=== PATIENT | female | born 1935 | race American Indian/Alaskan Native ===

== ENCOUNTER 2017-06-21 21:11 | Inpatient (IN) | payer MEDICARE ==
[2017-06-21 21:12] VITALS: BMI 29.2
--- NOTE | 2017-06-21 21:46 | C.PDOC ---
History Of Present Illness 81 year old female with PMHx of bladder tumor presents to the ED c/o sudden episode of lower chest wall and upper back pain. Patient described her back pain as severe and worsens with movement. Patient denies dysuria, hematuria, abdominal pain, nausea, vomit, diarrhea, SOB. Chief Complaint (Nursing): Back Pain History Per: Patient History/Exam Limitations: no limitations Onset/Duration Of Symptoms: Hrs Current Symptoms Are (Timing): Still Present Quality Of Discomfort: "Pain" Previous Symptoms: Back Pain Associated Symptoms: None Exacerbating Factor(s): Movement Recent travel outside of the [place]: No Additional History Per: Patient Past Medical History Reviewed: Historical Data, Nursing Documentation, Vital Signs Vital Signs: Last Vital Signs Temp 98.5 F 06/21/17 21:19 Pulse 88 06/21/17 22:37 Resp 20 06/21/17 22:37 BP 174/79 H 06/21/17 22:37 Pulse Ox 99 06/21/17 23:02 - Medical History PMH: Anemia, Arthritis, Cardia Arrhythmia, Diabetes, HTN, Hypercholesterolemia ( s/p 4-5 cardiac stents), Malignancy (Bladder), Peripheral Edema Denies: CHF Surgical History: Coronary Stent (4-5 stents), Endoscopy, Pacemaker - [facility] Procedures CYSTOSCOPY NEC (05/23/14) INITIAL INSERT OF SING CHAMB DEV, RATE RESPONSIVE (08/21/13) INITIAL INSERT OF TRANS. LEADS INTO VENTRICLE (08/21/13) TRANSURETH BLADD BIOPSY (07/28/13) TU BLADDER CLEARANCE (10/27/12) TU DESTRUC BLADD LES NEC (07/28/13) Family History: States: Unknown Family Hx - Social History Hx Tobacco Use: No Hx Alcohol Use: No Hx Substance Use: No - Immunization History Hx Tetanus Toxoid Vaccination: No Hx Influenza Vaccination: Yes Hx Pneumococcal Vaccination: No Review Of Systems Constitutional: Negative for: Fever, Chills Cardiovascular: Positive for: Chest Pain. Negative for: Palpitations Gastrointestinal: Negative for: Nausea, Vomiting, Abdominal Pain Musculoskeletal: Positive for: Back Pain Skin: Negative for: Rash Neurological: Negative for: Weakness, Numbness Physical Exam - Physical Exam Appears: Non-toxic, In Acute Distress (Secondary to pain) Skin: Normal Color, Warm, Dry Head: Atraumatic, Normacephalic Eye(s): bilateral: Normal Inspection Nose: No Discharge Oral Mucosa: Moist Neck: Normal ROM, Supple Chest: Symmetrical Cardiovascular: Rhythm Regular, No Murmur Respiratory: Normal Breath Sounds, No Rales, No Rhonchi, No Wheezing Back: Paraspinal Tenderness (lower thoracic) Extremity: Normal ROM, No Tenderness, No Swelling Neurological/Psych: Oriented x3 Gait: Steady ED Course And Treatment - Laboratory Results Result Diagrams: 06/21/17 21:55 06/21/17 21:55 ECG: Interpreted By Me, Viewed By Me ECG Rhythm: Sinus Rhythm, R BBB ECG Interpretation: Abnormal Interpretation Of ECG: NSR, CRBBB, St-t abnormality. Rate From EC O2 Sat by Pulse Oximetry: 99 (On RA) Pulse Ox Interpretation: Normal - CT Scan/US CT thoracic spine Other Rad Studies (CT/US): Read By Radiologist, Radiology Report Reviewed CT/US Interpretation: FINDINGS: Vertebrae: Spondylotic changes thoracic spine. No acute fracture. Discs/spinal canal/neural foramina: No acute findings. No spinal canal stenosis. Soft tissues: Unremarkable. Vasculature: Calcified tortuous thoracic aorta. Lungs: Atelectasis posterior left lung. IMPRESSION: No acute findings. Spondylotic changes thoracic spine. Thank you for allowing us to participate in the care of your patient. Dictated and Authenticated by: Obie Tolentino MD. 06/21/2017 10:59 PM Eastern Time ([place] & [place]) CT lumbar spine Other Rad Studies (CT/US): Read By Radiologist, Radiology Report Reviewed CT/US Interpretation: FINDINGS: Vertebrae: Schmorl's nodes in endplates of the lumbar spine. Degenerative facet arthropathy mid and lower lumbar spine. Grade 1 anterolisthesis of L4 on L5 appears to be on a degenerative basis. No acute fracture. Discs/spinal canal/neural foramina: Moderate bilateral neural foraminal stenosis at L5-S1 due to. degenerative disc bulges and bony hypertrophy. Degenerative disc disease throughout the lumbar spine. Soft tissues: Unremarkable. Vasculature: Atherosclerotic disease. IMPRESSION: 1. Degenerative changes as described. No acute findings. 2. Moderate bilateral neural foraminal stenosis at L5-S1 due to degenerative disc bulges and bony. hypertrophy. Thank you for allowing us to participate in the care of your patient. Dictated and Authenticated by: Obie Tolentino MD. 06/21/2017 10:56 PM Eastern Time ([place] & [place]) CT chest Other Rad Studies (CT/US): Read By Radiologist, Radiology Report Reviewed CT/US Interpretation: FINDINGS: Lungs: Atelectasis in the left lung base. Pleural space: Unremarkable. No pneumothorax. No significant effusion. Heart: Unremarkable. No cardiomegaly. No significant pericardial effusion. Bones/ joints: Unremarkable. No acute fracture. No dislocation. Soft tissues: Unremarkable. Vasculature: Atherosclerotic disease. No thoracic aortic aneurysm. Lymph nodes: Unremarkable. No enlarged lymph nodes. Tubes, lines and devices: Pacemaker. IMPRESSION: No acute findings. Thank you for allowing us to participate in the care of your patient. Dictated and Authenticated by: Obie Tolentino MD. 06/21/2017 11:00 PM Eastern Time ([place] & [place]) Medical Decision Making Medical Decision Making: Impression: lower back pain Plan: * CT chest * CT lumbar spine * CT thoracic spine * EKG * Labs * Toradol 30 mg IVP * UA Disposition Discussed With Dr.: Eugene Mcdermott Doctor Will See Patient In The: Hospital Counseled Patient/Family Regarding: Diagnosis - Disposition Disposition: HOSPITALIZED Disposition Time: 01:14 Condition: STABLE Forms: [employer] ([place]) - POA Present On Arrival: None - Clinical Impression Clinical Impression: Severe back pain, UTI (urinary tract infection) - Scribe Statement The provider has reviewed the documentation as recorded by the Scribe [place] Emery All medical record entries made by the Scribe were at my direction and personally dictated by me. I have reviewed the chart and agree that the record accurately reflects my personal performance of the history, physical exam, medical decision making, and the department course for this patient. I have also personally directed, reviewed, and agree with the discharge instructions and disposition.
--- NOTE | 2017-06-21 21:47 | C.PDOC ---
Chief Complaint (Nursing): Back Pain Past Medical History Vital Signs: Last Vital Signs Temp 98.5 F 06/21/17 21:19 Pulse 89 06/21/17 21:19 Resp 20 06/21/17 21:19 BP 144/88 06/21/17 21:19 Pulse Ox 99 06/21/17 21:19 - Medical History PMH: Anemia, Arthritis, Cardia Arrhythmia, Diabetes, HTN, Hypercholesterolemia ( s/p 4-5 cardiac stents), Malignancy (Bladder), Peripheral Edema Denies: CHF Surgical History: Coronary Stent (4-5 stents), Endoscopy, Pacemaker - [facility] Procedures CYSTOSCOPY NEC (05/23/14) INITIAL INSERT OF SING CHAMB DEV, RATE RESPONSIVE (08/21/13) INITIAL INSERT OF TRANS. LEADS INTO VENTRICLE (08/21/13) TRANSURETH BLADD BIOPSY (07/28/13) TU BLADDER CLEARANCE (10/27/12) TU DESTRUC BLADD LES NEC (07/28/13) Family History: States: Unknown Family Hx - Social History Hx Tobacco Use: No Hx Alcohol Use: No Hx Substance Use: No - Immunization History Hx Tetanus Toxoid Vaccination: No Hx Influenza Vaccination: Yes Hx Pneumococcal Vaccination: No ED Course And Treatment O2 Sat by Pulse Oximetry: 99 Disposition - Disposition
[2017-06-21 22:02] LABS: BASO % 0.7 % (0.0-2.0); EOS # 0.1 K/uL (0.0-0.7); EOS % 1.9 % (0.0-4.0); HEMOGLOBIN 13.6 g/dL (11.0-16.0); LYMPH # 1.4 K/uL (1.0-4.3); LYMPH % 25.7 % (20.0-40.0); MEAN CORPUSCULAR HGB CONC 33.7 g/dL (33.0-37.0); MEAN PLATELET VOLUME 9.3 fL (7.2-11.7); MONO # 0.6 K/uL (0.0-0.8); MONO % 10.4 % (0.0-10.0); NEUT # 3.3 K/uL (1.8-7.0); NEUT % 61.3 % (50.0-75.0); NRBC % 0.1 % (0.0-2.0); RBC 4.55 Mil/uL (3.80-5.20); RED CELL DISTRIBUTION WIDTH 14.9 % (11.5-14.5); WHITE BLOOD COUNT 5.4 K/uL (4.8-10.8)
[2017-06-21 22:15] LABS: ALB/GLOB RATIO 0.9 (1.0-2.1); ALBUMIN 4.3 g/dL (3.5-5.0); ALT/SGPT 16 U/L (9-52); AST/SGOT 23 U/L (14-36); BLOOD UREA NITROGEN 20 mg/dL (7-17); CALCIUM 9.5 mg/dl (8.6-10.4); GFR AFRICAN-AMERICAN > 60; GFR NON-AFRICAN AMERICAN 53
[2017-06-21 22:20] LABS: SQUAMOUS EPITHIAL 1 /hpf (0-5); URINE BILIRUBIN NEGATIVE (NEGATIVE); URINE BLOOD 2+ (NEGATIVE); URINE CLARITY Clear (Clear); URINE COLOR Yellow (YELLOW); URINE GLUCOSE (UA) NORMAL (Normal); URINE LEUKOCYTE ESTERASE TRACE Leu/uL (Negative); URINE PROTEIN 2+ mg/dL (NEGATIVE); URINE UROBILINOGEN NORMAL mg/dL (0.2-1.0)
[2017-06-21 22:29] LABS: INR 1.1; PROTHROMBIN TIME 12.1 SECONDS (9.7-12.2)
[2017-06-21] MEDS ORDERED: Morphine 4 MG/ML VIAL IV ONE (22:38)
[2017-06-21] MEDS ORDERED: Morphine 4 MG/ML VIAL ONE (22:44)
[2017-06-21] MEDS ORDERED: Ciprofloxacin 400mg/200ml D5W 400 MG/200 ML BAG IVPB STA (23:07)
[2017-06-21] MEDS ORDERED: Ciprofloxacin 400mg/200ml D5W 400 MG/200 ML BAG IVPB ONE (23:15)
[2017-06-22] MEDS ORDERED: Morphine 4 MG/ML VIAL ONE (01:04)
--- NOTE | 2017-06-22 01:41 | CP.PCM.HP ---
<Natalie Paredes - Last Filed: 06/22/17 03:15> History of Present Illness - History of Present Illness History of Present Illness: CC: "back pain" HPI: 81 year old female with past medical history of bladder cancer (diagnosed 2007), DM type II, CAD, HTN presents to the ER for back pain. Patient states the pain started Wednesday around noon while she was at rest. Patient denies trauma or falls. The pain started on the right side and now it is currently on the left. She states the pain comes and goes and it does not radiate anywhere. She describes the pain as a quick pain. She states she not currently in pain. She uses a cane to walk. She denies hematuria, dysuria, nausea, vomiting, fever, diarrhea or constipation. PMD: Dr. Lincoln Urologist: Dr. Reyes Past Medical History: bladder cancer (diagnosed 2007), DM type II, CAD, HTN; Glaucoma; Decreased bilateral vision for 4 years Past Surgical History: cystoscopy (03/07) for cyst removal with Dr. Reyes; pacemaker placed 4 years ago (last interrogated was last week); Cataract surgery ; tubal ligation bilateral eyes Medications: Meloxicam 15mg daily; Hydralazine 50mg tid; Atorvastatin 10mg hs; famotidine 20mg hs; aspirin 81mg daily; Nifedipine ER 90mg daily; Glipidizde ER 5mg daily; Isosorbide DN 30mg BID; Metoprolol Succinate ER 50mg daily; Dorzolamide Timolol 1 drop OU bid Allergies: NKDA Family History: non-contributory Social History: Quit smoking 20 years ago; previously smoked for 20 years about Present on Admission - Present on Admission Any Indicators Present on Admission: No Review of Systems - Constitutional Constitutional: absent: Chills, Fever - EENT Eyes: As Per HPI Ears: absent: Dizziness - Cardiovascular Cardiovascular: absent: Chest Pain, Dyspnea, Edema, Palpitations - Respiratory Respiratory: absent: Cough, Dyspnea - Gastrointestinal Gastrointestinal: absent: Constipation, Diarrhea, Nausea, Vomiting - Genitourinary Genitourinary: absent: Change in Urinary Stream, Difficulty Urinating, Dysuria, Hematuria, Urinary Incontinence - Musculoskeletal Musculoskeletal: Back Pain. 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) Hx Glaucoma: Yes Hx Macular Degeneration: Yes - ENDOCRINE/METABOLIC Hx Endocrine Disorders: Yes Hx Diabetes Mellitus Type 1: Yes - HEMATOLOGICAL/ONCOLOGICAL Hx Anemia: Yes - INTEGUMENTARY Hx Dermatological Problems: No - MUSCULOSKELETAL/RHEUMATOLOGICAL Hx Arthritis: Yes - GASTROINTESTINAL Hx Gastrointestinal Disorders: No - GENITOURINARY/GYNECOLOGICAL Hx Genitourinary Disorders: Yes Hx Bladder Cancer: Yes Hx Hematuria: Yes - PSYCHIATRIC Hx Substance Use: No - SURGICAL HISTORY Hx Coronary Stent: Yes (4-5 stents) - ANESTHESIA Hx Anesthesia: Yes Hx Anesthesia Reactions: No (NAUSEA AND VOMITING) Hx Malignant Hyperthermia: No Meds Allergies/Adverse Reactions: Allergies Allergy/AdvReac Type Severity Reaction Status Date / Time No Known Allergies Allergy Verified 06/21/17 21:23 Physical Exam - Constitutional Appears: Well, No Acute Distress - Head Exam Head Exam: ATRAUMATIC, NORMAL INSPECTION - Eye Exam Eye Exam: EOMI, Normal appearance, PERRL Pupil Exam: NORMAL ACCOMODATION - ENT Exam ENT Exam: Mucous Membranes Moist - Respiratory Exam Respiratory Exam: Clear to Auscultation Bilateral, NORMAL BREATHING PATTERN. absent: Rales, Rhonchi, Wheezes, Stridor - Cardiovascular Exam Cardiovascular Exam: REGULAR RHYTHM, RRR, +S1, +S2 - GI/Abdominal Exam GI & Abdominal Exam: Normal Bowel Sounds, Soft. absent: Tenderness - Extremities Exam Extremities exam: Positive for: normal inspection. Negative for: pedal edema, tenderness - Back Exam Back exam: tenderness (spinal tenderness T10 ) - Neurological Exam Neurological exam: Alert, Oriented x3 - Psychiatric Exam Psychiatric exam: Normal Affect, Normal Mood Results - Vital Signs Recent Vital Signs: Last Vital Signs Temp 98.5 F 06/21/17 21:19 Pulse 88 06/22/17 01:24 Resp 20 06/22/17 01:24 BP 183/86 H 06/22/17 01:24 Pulse Ox 99 06/22/17 01:24 - Labs Result Diagrams: 06/21/17 21:55 06/21/17 21:55 Labs: Laboratory Results - last 24 hr 06/21/17 06/21/17 06/21/17 21:55 21:55 22:06 WBC 5.4 RBC 4.55 Hgb 13.6 Hct 40.5 MCV 89.0 MCH 30.0 MCHC 33.7 RDW 14.9 H Plt Count 226 MPV 9.3 Neut % (Auto) 61.3 Lymph % (Auto) 25.7 [place] % (Auto) 10.4 H Eos % (Auto) 1.9 Baso % (Auto) 0.7 Neut # (Auto) 3.3 Lymph # (Auto) 1.4 [place] # (Auto) 0.6 Eos # (Auto) 0.1 Baso # (Auto) 0.0 PT INR APTT Sodium 146 Potassium 3.8 Chloride 105 Carbon Dioxide 20 L Anion Gap 25 H BUN 20 H Creatinine 1.0 Est GFR ( Amer) > 60 Est GFR (Non-Af Amer) 53 Random Glucose 133 H Calcium 9.5 Total Bilirubin 0.7 AST 23 ALT 16 Alkaline Phosphatase 84 Troponin I 0.0190 Total Protein 8.9 H Albumin 4.3 Globulin 4.6 H Albumin/Globulin Ratio 0.9 L Urine Color Yellow Urine Clarity Clear Urine pH 7.0 Ur Specific [place] 1.012 Urine Protein 2+ H Urine Glucose (UA) Normal Urine Ketones Negative Urine Blood 2+ H Urine Nitrate Negative Urine Bilirubin Negative Urine Urobilinogen Normal Ur Leukocyte Esterase Trace Urine WBC (Auto) 15 H Urine RBC (Auto) 42 H Ur Squamous Epith Cells 1 06/21/17 22:16 WBC RBC Hgb Hct MCV MCH MCHC RDW Plt Count MPV Neut % (Auto) Lymph % (Auto) [place] % (Auto) Eos % (Auto) Baso % (Auto) Neut # (Auto) Lymph # (Auto) [place] # (Auto) Eos # (Auto) Baso # (Auto) PT 12.1 INR 1.1 APTT 37 H Sodium Potassium Chloride Carbon Dioxide Anion Gap BUN Creatinine Est GFR ( Amer) Est GFR (Non-Af Amer) Random Glucose Calcium Total Bilirubin AST ALT Alkaline Phosphatase Troponin I Total Protein Albumin Globulin Albumin/Globulin Ratio Urine Color Urine Clarity Urine pH Ur Specific [place] Urine Protein Urine Glucose (UA) Urine Ketones Urine Blood Urine Nitrate Urine Bilirubin Urine Urobilinogen Ur Leukocyte Esterase Urine WBC (Auto) Urine RBC (Auto) Ur Squamous Epith Cells Assessment & Plan - Assessment and Plan (Free Text) Assessment: 1.) T10 Spinal Back Pain - CT Thoracic spine: No acute findings. Spondylotic changes thoracic spine. - CT Lumbar spine: Degenerative changes as described. No acute findings. Moderate bilateral neural foraminal stenosis at L5-S1 due to degenerative disc bulges and bony. hypertrophy. - CT chest: No acute findings. - Toradol 30mg IV q6 prn - moderate pain - Tylenol 650mg po q6 prn - mild pain - Physical Therapy Eval and Treat 2.) Elevated Anion Gap - Anion gap 21 - unknown source - f/u AM labs 3.) Positive UA - patient is asymptomatic - patient was given Cipro 400mg in the ER - f/u repeat UA - f/u urine culture 4.) History of bladder cancer - Patient normally urinates often and patient has chronic decreased vision - orourke placed overnight 5.) History of DM - Accuchecks - ISS - Hypoglycemia protocol 6.) History of HTN - Continue Home medications: * Hydralazine 50mg tid; * Nifedipine ER 90mg daily; * Isosorbide DN 30mg BID; * Metoprolol Succinate ER 50mg daily 7.) History of CAD - Continue home medications: * Atorvastatin 10mg hs * aspirin 81mg daily; 8.) History of Glaucoma - Continue home medications * Dorzolamide/Timolol one drop OU bid 9.) History of decrease vision - Nursing communication placed 10.) Prophylaxis - Pepcid 40mg daily - Heparin SC - SCDs - Physical Therapy Case discussed with Dr. Sharron Paredes PGY-1 <Eugene Mcdermott P - Last Filed: 06/22/17 07:02> Results - Vital Signs Recent Vital Signs: Last Vital Signs Temp 98.2 F 06/22/17 03:25 Pulse 83 06/22/17 06:39 Resp 20 06/22/17 03:25 BP 177/86 H 06/22/17 06:39 Pulse Ox 95 06/22/17 03:25 - Labs Result Diagrams: 06/21/17 21:55 06/21/17 21:55 Labs: Laboratory Results - last 24 hr 06/21/17 06/21/17 06/21/17 21:55 21:55 22:06 WBC 5.4 RBC 4.55 Hgb 13.6 Hct 40.5 MCV 89.0 MCH 30.0 MCHC 33.7 RDW 14.9 H Plt Count 226 MPV 9.3 Neut % (Auto) 61.3 Lymph % (Auto) 25.7 [place] % (Auto) 10.4 H Eos % (Auto) 1.9 Baso % (Auto) 0.7 Neut # (Auto) 3.3 Lymph # (Auto) 1.4 [place] # (Auto) 0.6 Eos # (Auto) 0.1 Baso # (Auto) 0.0 PT INR APTT Sodium 146 Potassium 3.8 Chloride 105 Carbon Dioxide 20 L Anion Gap 25 H BUN 20 H Creatinine 1.0 Est GFR ( Amer) > 60 Est GFR (Non-Af Amer) 53 POC Glucose (mg/dL) Random Glucose 133 H Calcium 9.5 Total Bilirubin 0.7 AST 23 ALT 16 Alkaline Phosphatase 84 Troponin I 0.0190 Total Protein 8.9 H Albumin 4.3 Globulin 4.6 H Albumin/Globulin Ratio 0.9 L Urine Color Yellow Urine Clarity Clear Urine pH 7.0 Ur Specific [place] 1.012 Urine Protein 2+ H Urine Glucose (UA) Normal Urine Ketones Negative Urine Blood 2+ H Urine Nitrate Negative Urine Bilirubin Negative Urine Urobilinogen Normal Ur Leukocyte Esterase Trace Urine WBC (Auto) 15 H Urine RBC (Auto) 42 H Ur Squamous Epith Cells 1 06/21/17 06/22/17 06/22/17 22:16 02:45 06:11 WBC RBC Hgb Hct MCV MCH MCHC RDW Plt Count MPV Neut % (Auto) Lymph % (Auto) [place] % (Auto) Eos % (Auto) Baso % (Auto) Neut # (Auto) Lymph # (Auto) [place] # (Auto) Eos # (Auto) Baso # (Auto) PT 12.1 INR 1.1 APTT 37 H Sodium Potassium Chloride Carbon Dioxide Anion Gap BUN Creatinine Est GFR ( Amer) Est GFR (Non-Af Amer) POC Glucose (mg/dL) 136 H Random Glucose Calcium Total Bilirubin AST ALT Alkaline Phosphatase Troponin I Total Protein Albumin Globulin Albumin/Globulin Ratio Urine Color Yellow Urine Clarity Clear Urine pH 7.0 Ur Specific [place] 1.008 Urine Protein 2+ H Urine Glucose (UA) Normal Urine Ketones Negative Urine Blood 1+ H Urine Nitrate Negative Urine Bilirubin Negative Urine Urobilinogen Normal Ur Leukocyte Esterase Neg Urine WBC (Auto) 1 Urine RBC (Auto) 10 H Ur Squamous Epith Cells Attending/Attestation - Attestation I have personally seen and examined this patient.: Yes I have fully participated in the care of the patient.: Yes I have reviewed all pertinent clinical information: Yes Notes (Text): Assessment * Sudden back pain and resulting ambulatory dysfunction, 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
[2017-06-22] MEDS ORDERED: Glucagon Recombinant 1 mg Inj IM PRN (01:51)
[2017-06-22] MEDS ORDERED: Dextrose 50% SYRINGE Inj (50 ml) IV PRN (01:51)
[2017-06-22 03:12] LABS: URINE BILIRUBIN NEGATIVE (NEGATIVE); URINE BLOOD 1+ (NEGATIVE); URINE CLARITY Clear (Clear); URINE COLOR Yellow (YELLOW); URINE GLUCOSE (UA) NORMAL (Normal); URINE LEUKOCYTE ESTERASE NEG Leu/uL (Negative); URINE PROTEIN 2+ mg/dL (NEGATIVE); URINE UROBILINOGEN NORMAL mg/dL (0.2-1.0)
[2017-06-22 07:34] LABS: BASO % 0.6 % (0.0-2.0); EOS # 0.1 K/uL (0.0-0.7); EOS % 2.7 % (0.0-4.0); HEMOGLOBIN 13.1 g/dL (11.0-16.0); LYMPH # 1.3 K/uL (1.0-4.3); LYMPH % 31.1 % (20.0-40.0); MEAN CELL VOLUME 88.9 fL (81.0-99.0); MEAN CORPUSCULAR HEMOGLOBIN 29.6 pg (27.0-31.0); MEAN CORPUSCULAR HGB CONC 33.3 g/dL (33.0-37.0); MEAN PLATELET VOLUME 9.9 fL (7.2-11.7); MONO # 0.5 K/uL (0.0-0.8); MONO % 12.7 % (0.0-10.0); NEUT # 2.3 K/uL (1.8-7.0); NEUT % 52.9 % (50.0-75.0); NRBC % 0.2 % (0.0-2.0); RBC 4.43 Mil/uL (3.80-5.20); RED CELL DISTRIBUTION WIDTH 14.9 % (11.5-14.5); WHITE BLOOD COUNT 4.3 K/uL (4.8-10.8)
[2017-06-22] MEDS: (Novolin R) Insulin Human Regular 100 units/ml vial SC SCH ×2 (07:52→12:37)
[2017-06-22 08:23] LABS: ALBUMIN 4.1 g/dL (3.5-5.0); ALT/SGPT 9 U/L (9-52); AST/SGOT 23 U/L (14-36); BLOOD UREA NITROGEN 16 mg/dL (7-17); CALCIUM 8.2 mg/dl (8.6-10.4); GFR AFRICAN-AMERICAN > 60; GFR NON-AFRICAN AMERICAN 60
[2017-06-22] MEDS: NIFEdipine 90 mg ER Tab PO SCH ×2 (08:42→09:00)
--- NOTE | 2017-06-22 09:56 | CP.PCM.PN ---
Subjective - Date & Time of Evaluation Date of Evaluation: 06/22/17 Time of Evaluation: 09:56 - Subjective Subjective: PGY-[address] Tete Lopes. No acute events noted overnight. Patient has b/l blindness. She did not offer any complaints. She denied chest pain, shortness of breath, abdominal pain. She worked with physical therapy earlier in the day. Objective - Vital Signs/Intake and Output Vital Signs (last 24 hours): Temp Pulse Resp BP Pulse Ox 98.1 F 82 18 187/70 H 97 06/22/17 07:00 06/22/17 07:00 06/22/17 07:00 06/22/17 07:00 06/22/17 07:00 Intake and Output: 06/22/17 06/22/17 06:59 18:59 Output Total 400 Balance -400 - Medications Medications: Current Medications Acetaminophen (Tylenol 325mg Tab) 650 mg PO Q6 PRN PRN Reason: Pain, Mild (1-3) Last Admin: 06/22/17 06:32 Dose: 650 mg Aspirin (Aspirin Chewable) 81 mg PO DAILY [facility] Dextrose (Dextrose 50% Inj) 0 ml IV STAT PRN; Protocol PRN Reason: Hypoglycemia Protocol Dextrose (Glutose 15) 0 gm PO ONCE PRN; Protocol PRN Reason: Hypoglycemia Protocol Dorzolamide HCl (Trusopt) 0 ml OU BID [facility] Famotidine (Pepcid) 20 mg PO HS [facility] Glucagon (Glucagen Diagnostic Kit) 0 mg IM STAT PRN; Protocol PRN Reason: Hypoglycemia Protocol Heparin Sodium (Porcine) (Heparin) 5,000 units SC Q8 [facility] Last Admin: 06/22/17 06:30 Dose: Not Given Hydralazine HCl (Apresoline) 50 mg PO TID [facility] Dextrose (Dextrose 5% In Water 1000 Ml) 1,000 mls @ 0 mls/hr IV .Q0M PRN; Protocol; Per Protocol PRN Reason: Hypoglycemia Protocol Insulin Human Regular (Novolin R) 0 unit SC ACHS [facility] PRN Reason: Protocol Last Admin: 06/22/17 07:52 Dose: Not Given Isosorbide Dinitrate (Isordil) 30 mg PO BID [facility] Ketorolac Tromethamine (Toradol) 30 mg IVP Q6 PRN PRN Reason: Pain, moderate (4-7) Metoprolol Succinate (Toprol Xl) 50 mg PO DAILY [facility] Nifedipine (Procardia Xl) 90 mg PO DAILY [facility] Rosuvastatin Calcium (Crestor) 5 mg PO HS [facility] Timolol Maleate (Timoptic 0.5% Ophth Soln) 0 drop OU BID [facility] - Labs Labs: 06/22/17 07:18 06/22/17 07:18 PT 12.1 SECONDS (9.7-12.2) 06/21/17 22:16 INR 1.1 06/21/17 22:16 APTT 37 SECONDS (21-34) H 06/21/17 22:16 - Additional Findings Additional findings: - Constitutional Appears: Well, No Acute Distress - Head Exam Head Exam: ATRAUMATIC, NORMAL INSPECTION - Eye Exam Eye Exam: EOMI, Normal appearance, PERRL Pupil Exam: NORMAL ACCOMODATION - ENT Exam ENT Exam: Mucous Membranes Moist - Respiratory Exam Respiratory Exam: Clear to Auscultation Bilateral, NORMAL BREATHING PATTERN. absent: Rales, Rhonchi, Wheezes, Stridor - Cardiovascular Exam Cardiovascular Exam: REGULAR RHYTHM, RRR, +S1, +S2 - GI/Abdominal Exam GI & Abdominal Exam: Normal Bowel Sounds, Soft. absent: Tenderness - Extremities Exam Extremities exam: Positive for: normal inspection. Negative for: pedal edema, tenderness - Back Exam Back exam: tenderness (spinal tenderness T10 ) - Neurological Exam Neurological exam: Alert, Oriented x3 - Psychiatric Exam Psychiatric exam: Normal Affect, Normal Mood Assessment and Plan - Assessment and Plan (Free Text) Assessment: T10 Spinal Back Pain - CT Thoracic spine: No acute findings. Spondylotic changes thoracic spine. - CT Lumbar spine: Degenerative changes as described. No acute findings. Moderate bilateral neural foraminal stenosis at L5-S1 due to degenerative disc bulges and bony. hypertrophy. - CT chest: No acute findings. - Toradol 30mg IV q6 prn - moderate pain - Tylenol 650mg po q6 prn - mild pain - Physical Therapy Eval and Treat Elevated Anion Gap - Anion gap 21 -> 20 Positive UA - patient is asymptomatic - patient was given Cipro 400mg in the ER - repeat UA shows 2+ protein, 1+ blood, 10 RBC, however now without WBCs - f/u urine culture History of bladder cancer - Patient normally urinates often and patient has chronic decreased vision - orourke placed overnight History of DM - Accuchecks - ISS - Hypoglycemia protocol History of HTN - Continue Home medications: * Hydralazine 50mg tid; * Nifedipine ER 90mg daily; * Isosorbide DN 30mg BID; * Metoprolol Succinate ER 50mg daily History of CAD - Continue home medications: * Atorvastatin 10mg hs * aspirin 81mg daily; History of Glaucoma - Continue home medications * Dorzolamide/Timolol one drop OU bid History of decrease vision - Nursing communication placed Prophylaxis - Pepcid 40mg daily - Heparin SC - SCDs - Physical Therapy
[2017-06-22] MEDS ORDERED: Dorzolamide 2% Opht Sol 10ml OU SCH (10:00)
[2017-06-22] MEDS ORDERED: Metoprolol Succinate 50 mg XL Tab PO SCH (10:00)
[2017-06-22] MEDS ORDERED: NIFEdipine 90 mg ER Tab PO SCH (10:00)
--- NOTE | 2017-06-22 11:19 | CARD ---
APPROVED REPORT EKG Measurement Heart [id number] <Conclusion> Normal sinus rhythm Possible Left atrial enlargement Right bundle branch block Left anterior fascicular block Bifascicular block Left ventricular hypertrophy with repolarization abnormality Cannot rule out Septal infarct, age undetermined Abnormal ECG
--- NOTE | 2017-06-22 11:48 | CT ---
PROCEDURE: CT Chest without contrast HISTORY: chest pain COMPARISON: None. TECHNIQUE: Contiguous axial images were obtained through the chest without intravenous contrast enhancement. Sagittal and coronal reconstructions were performed. Radiation dose (DLP): mGy-cm. This CT exam was performed using one or more of the following dose reduction techniques: Automated exposure control, adjustment of the mA and/or kV according to patient size, and/or use of iterative reconstruction technique. FINDINGS: LUNGS: No infiltrate appreciated with a central airways clear. There is a tiny noncalcified 2 mm nodule seen at the superior segment left lower lobe laterally, approaching but not definitively abutting the major fissure. No additional pulmonary nodule or mass appreciated otherwise. MEDIASTINUM: The thoracic inlet appears remarkable only for unipolar cardiac pacemaker with the generator the left pectoralis subcutaneous fat and solitary lead in height and extending into the subclavian vein and terminating at the distal right atrium. An atherosclerotic nonaneurysmal thoracic aorta is identified. Probable coronary artery stents are identified with coronary artery atherosclerosis. Mild cardiomegaly is noted. Main pulmonary artery unremarkable. No vascular congestion. No lymphadenopathy. A small hiatal hernia is encountered. PLEURA: No pleural fluid. No pneumothorax. BONES: No fracture. No destructive lesion. UPPER ABDOMEN: Grossly unremarkable. OTHER FINDINGS: None. IMPRESSION: A tiny 2 mm nodule is appreciated at the superior segment left lower lobe (lung rad 2). Follow-up low-dose chest CT can be performed in 1 year to initiate stability assessment. No additional pulmonary nodule or mass. No significant lymphadenopathy. No acute pulmonary findings. Cardiomegaly. Permanent cardiac pacemaker in situ as discussed above.
[2017-06-22 13:24] VITALS: PULSE 82
--- NOTE | 2017-06-22 13:30 | CT ---
CT thoracic spine History: Pain. Comparison: None available. Technique: Multiple contiguous axial images were performed through the thoracic spine without the use of intravenous contrast. Subsequently, sagittal and coronal reformatted images were obtained. This CT exam was performed using one or more of the following dose reduction techniques: Automated exposure control, adjustment of the mA and/or kV according to patient size, and/or use of iterative reconstruction technique. Findings: Spondylolytic changes in the thoracic spine with multilevel paravertebral osteophyte formation most prominent in the mid to distal thoracic spine. Multilevel posterior disc osteophyte complexes seen throughout the thoracic spine. These would be better evaluated with MRI. Calcified tortuous thoracic aorta. Atelectasis in the posterior left lung. Please see separate report for evaluation of the lumbar spine. Prominent degenerative changes noted in the cervical spine. Heterogeneous appearance of the thyroid gland. Correlation with ultrasound may be helpful to evaluate for possible nodules. Left-sided pacer lead noted. Coronary calcifications and or stents. Impression: Prominent degenerative changes in the thoracic spine. If pain persists, consider MRI. These findings were preliminarily reported at 10:59 p.m. on 06/21/[address] Obie Tolentino from [facility].
--- NOTE | 2017-06-22 13:38 | CT ---
PROCEDURE: CT Lumbar Spine without contrast HISTORY: back pain COMPARISON: None. TECHNIQUE: Axial computed tomography images were obtained of the lumbar spine without the use of intravenous contrast. Coronal and sagittal reformatted images were created and reviewed. Radiation dose: Total exam DLP = 772.06 mGy-cm. This CT exam was performed using one or more of the following dose reduction techniques: Automated exposure control, adjustment of the mA and/or kV according to patient size, and/or use of iterative reconstruction technique. FINDINGS: VERTEBRAE: Normal lumbar curvature is appreciate without fracture or spondylolisthesis. Vertebral body heights are normal. Disc height loss identified at L4-5 and particularly at L5-S1 with remaining intervertebral discs normal in height. Note is made of vacuum disc change at T12-L1 intervertebral disc, an additional sided degenerative disc disease. Schmorl's nodes are identified at the endplate surrounding the L2-3 disc interspace as well as the inferior endplate of L3 and superior endplate of T12. Multilevel facet joint degenerative changes are appreciated diffusely but worst at the mid to inferior lumbar levels. Prevertebral paraspinal soft tissues reflect only aortic iliac atherosclerosis. 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 DISCS/SPINAL CANAL/NEURAL FORAMINA: L1-2: Unremarkable. L2-3: A generalized disc bulge is appreciated combining with facet joint degenerative arthropathy to cause a moderate central canal stenosis and moderate bilateral neural foraminal stenosis. L3-4: A nearly identical moderate central stenosis caused by generalized disc bulging combining with facet joint degenerative arthropathy at this level as well. [id number] bilateral neural foraminal stenosis identified. L4-5: Moderate to severe degenerative central canal stenosis results from a large generalized disc bulge combining with gross facet joint degenerative arthropathy with mild bilateral neural foraminal stenosis appreciated. L5-S1: A prominent generalized disc bulge is appreciated combining with gross facet joint degenerative change resulting in mild central canal stenosis. PARASPINAL SOFT TISSUES: Unremarkable. OTHER FINDINGS: None. IMPRESSION: Multilevel degenerative spinal stenosis appreciated predominate L3-4 and L4-5 with mild involvement L5-S1 caused by generalized disc bulging combined with facet joint arthropathy. Multilevel neural foraminal stenosis is identified as well. Further characterization can provided by MRI if clinically warranted. 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
--- NOTE | 2017-06-22 14:44 | CP.PCM.DIS ---
Provider - Provider Date of Admission: 06/22/17 01:15 Attending physician: Eugene Mcdermott MD Primary care physician: PMD: Dr Lincoln Time Spent in preparation of Discharge (in minutes): 33 Diagnosis - Discharge Diagnosis (1) Spinal stenosis of lumbar region Status: Acute Priority: Medium Hospital Course - Lab Results Lab Results: Most Recent Lab Values WBC 4.3 K/uL (4.8-10.8) L 06/22/17 07:18 RBC 4.43 Mil/uL (3.80-5.20) 06/22/17 07:18 Hgb 13.1 g/dL (11.0-16.0) 06/22/17 07:18 Hct 39.4 % (34.0-47.0) 06/22/17 07:18 MCV 88.9 fL (81.0-99.0) 06/22/17 07:18 MCH 29.6 pg (27.0-31.0) 06/22/17 07:18 MCHC 33.3 g/dL (33.0-37.0) 06/22/17 07:18 RDW 14.9 % (11.5-14.5) H 06/22/17 07:18 Plt Count 211 K/uL (130-400) 06/22/17 07:18 MPV 9.9 fL (7.2-11.7) 06/22/17 07:18 Neut % (Auto) 52.9 % (50.0-75.0) 06/22/17 07:18 Lymph % (Auto) 31.1 % (20.0-40.0) 06/22/17 07:18 [place] % (Auto) 12.7 % (0.0-10.0) H 06/22/17 07:18 Eos % (Auto) 2.7 % (0.0-4.0) 06/22/17 07:18 Baso % (Auto) 0.6 % (0.0-2.0) 06/22/17 07:18 Neut # (Auto) 2.3 K/uL (1.8-7.0) 06/22/17 07:18 Lymph # (Auto) 1.3 K/uL (1.0-4.3) 06/22/17 07:18 Kle[place] # (Auto) 0.5 K/uL (0.0-0.8) 06/22/17 07:18 Eos # (Auto) 0.1 K/uL (0.0-0.7) 06/22/17 07:18 Baso # (Auto) 0.0 K/uL (0.0-0.2) 06/22/17 07:18 PT 12.1 SECONDS (9.7-12.2) 06/21/17 22:16 INR 1.1 06/21/17 22:16 APTT 37 SECONDS (21-34) H 06/21/17 22:16 Sodium 145 mmol/L (132-148) 06/22/17 07:18 Potassium 3.7 mmol/L (3.6-5.2) 06/22/17 07:18 Chloride 105 mmol/L (98-107) 06/22/17 07:18 Carbon Dioxide 20 mmol/L (22-30) L 06/22/17 07:18 Anion Gap 23 (10-20) H 06/22/17 07:18 BUN 16 mg/dL (7-17) 06/22/17 07:18 Creatinine 0.9 mg/dL (0.7-1.2) 06/22/17 07:18 Est GFR ( Amer) > 60 06/22/17 07:18 Est GFR (Non-Af Amer) 60 06/22/17 07:18 POC Glucose (mg/dL) 201 mg/dL (65-110) H 06/22/17 11:28 Random Glucose 148 mg/dL (65-105) H 06/22/17 07:18 Calcium 8.2 mg/dl (8.6-10.4) L 06/22/17 07:18 Phosphorus 3.6 mg/dL (2.5-4.5) 06/22/17 07:18 Magnesium 1.8 mg/dL (1.6-2.3) 06/22/17 07:18 Total Bilirubin 0.7 mg/dL (0.2-1.3) 06/22/17 07:18 AST 23 U/L (14-36) 06/22/17 07:18 ALT 9 U/L (9-52) D 06/22/17 07:18 Alkaline Phosphatase 68 U/L (38-126) 06/22/17 07:18 Troponin I 0.0190 ng/mL (0.00-0.120) 06/21/17 21:55 Total Protein 8.3 g/dL (6.3-8.3) 06/22/17 07:18 Albumin 4.1 g/dL (3.5-5.0) 06/22/17 07:18 Globulin 4.2 gm/dL (2.2-3.9) H 06/22/17 07:18 Albumin/Globulin Ratio 1.0 (1.0-2.1) 06/22/17 07:18 Urine Color Yellow (YELLOW) 06/22/17 02:45 Urine Clarity Clear (Clear) 06/22/17 02:45 Urine pH 7.0 (5.0-8.0) 06/22/17 02:45 Ur Specific [place] 1.008 (1.003-1.030) 06/22/17 02:45 Urine Protein 2+ mg/dL (NEGATIVE) H 06/22/17 02:45 Urine Glucose (UA) Normal mg/dL (Normal) 06/22/17 02:45 Urine Ketones Negative mg/dL (NEGATIVE) 06/22/17 02:45 Urine Blood 1+ (NEGATIVE) H 06/22/17 02:45 Urine Nitrate Negative (NEGATIVE) 06/22/17 02:45 Urine Bilirubin Negative (NEGATIVE) 06/22/17 02:45 Urine Urobilinogen Normal mg/dL (0.2-1.0) 06/22/17 02:45 Ur Leukocyte Esterase Neg Mary/uL (Negative) 06/22/17 02:45 Urine WBC (Auto) 1 /hpf (0-5) 06/22/17 02:45 Urine RBC (Auto) 10 /hpf (0-3) H 06/22/17 02:45 Ur Squamous Epith Cells 1 /hpf (0-5) 06/21/17 22:06 - Hospital Course Hospital Course: CC: "back pain" HPI: 81 year old female with past medical history of bladder cancer (diagnosed 2007), DM type II, CAD, HTN presents to the ER for back pain. Patient states the pain started Wednesday around noon while she was at rest. Patient denies trauma or falls. The pain started on the right side and now it is currently on the left. She states the pain comes and goes and it does not radiate anywhere. She describes the pain as a quick pain. She states she not currently in pain. She uses a cane to walk. She denies hematuria, dysuria, nausea, vomiting, fever, diarrhea or constipation. PMD: Dr. Lincoln Urologist: Dr. Reyes Past Medical History: bladder cancer (diagnosed 2007), DM type II, CAD, HTN; Glaucoma; Decreased bilateral vision for 4 years Past Surgical History: cystoscopy (03/07) for cyst removal with Dr. Reyes; pacemaker placed 4 years ago (last interrogated was last week); Cataract surgery ; tubal ligation bilateral eyes Medications: Meloxicam 15mg daily; Hydralazine 50mg tid; Atorvastatin 10mg hs; famotidine 20mg hs; aspirin 81mg daily; Nifedipine ER 90mg daily; Glipidizde ER 5mg daily; Isosorbide DN 30mg BID; Metoprolol Succinate ER 50mg daily; Dorzolamide Timolol 1 drop OU bid Allergies: NKDA Family History: non-contributory Social History: Quit smoking 20 years ago; previously smoked for 20 years about HOSPITAL COURSE: 81 year old female with past medical history of bladder CA, T2DM, CAD, HTN presents to hospital with back pain. Patient was admitted and had CT of lumbar, thoracic spine and chest done. Imaging showed prominent degenerative changes (spondylolytic changes and multilevel paravertebral osteophyte formation) in thoracic spine, multilevel degenerative spinal stenosis from L3-L5 with mild L5-S1 disc bulging and facet joint arthopathy with multilevel neural foraminal stenosis. Patient was also found to have an anion gap metabolic acidosis with an AG of 21. Patient was treated with toradol 15mg IVP Q6 PRN for pain as well as medications of ASA 81 mg PO daily, Pepcid 20 mg PO HS, Heparin 5000 units SC Q8, Hydralazine 50mg PO QID, Novolin R, Isosorbide Dinitrate 30 mg PO BID, metoprolol Succinate 50 mg PO daily, Nifedipine 90 mg PO daily, Rosuvastatin 5 mgPO HS, Timolol maleate .5% opth solution 1 drop b/l for chronic conditions. Upon discharge patient's pain was decreased, anion gap was closed and patient was given instructions for home medications as well as contact information for interventional pain management and a visiting nurse service. The latest progress note is shown below for further details on management course : L5-S1 Spinal Back Pain - CT Thoracic spine: No acute findings. Spondylotic changes thoracic spine. - CT Lumbar spine: Degenerative changes as described. No acute findings. Moderate bilateral neural foraminal stenosis at L5-S1 due to degenerative disc bulges and bony. hypertrophy. - CT chest: No acute findings. - Toradol 30mg IV q6 prn - moderate pain - Tylenol 650mg po q6 prn - mild pain - Physical Therapy Eval and Treat Elevated Anion Gap - Anion gap 21 -> 20 Positive UA - patient is asymptomatic - patient was given Cipro 400mg in the ER - repeat UA shows 2+ protein, 1+ blood, 10 RBC, however now without WBCs - f/u urine culture History of bladder cancer - Patient normally urinates often and patient has chronic decreased vision - orourke placed overnight History of DM - Accuchecks - ISS - Hypoglycemia protocol History of HTN - Continue Home medications: * Hydralazine 50mg tid; * Nifedipine ER 90mg daily; * Isosorbide DN 30mg BID; * Metoprolol Succinate ER 50mg daily History of CAD - Continue home medications: * Atorvastatin 10mg hs * aspirin 81mg daily; History of Glaucoma - Continue home medications * Dorzolamide/Timolol one drop OU bid History of decrease vision - Nursing communication placed Prophylaxis - Pepcid 40mg daily - Heparin SC - SCDs - Physical Therapy Discharge Exam - Head Exam Head Exam: ATRAUMATIC, NORMAL INSPECTION - Additional Findings Additional findings: - Constitutional Appears: Well, No Acute Distress - Head Exam Head Exam: ATRAUMATIC, NORMAL INSPECTION - Eye Exam Eye Exam: EOMI, Normal appearance, PERRL Pupil Exam: NORMAL ACCOMODATION Blindness bilaterally - ENT Exam ENT Exam: Mucous Membranes Moist - Respiratory Exam Respiratory Exam: Clear to Auscultation Bilateral, NORMAL BREATHING PATTERN. absent: Rales, Rhonchi, Wheezes, Stridor - Cardiovascular Exam Cardiovascular Exam: REGULAR RHYTHM, RRR, +S1, +S2 - GI/Abdominal Exam GI & Abdominal Exam: Normal Bowel Sounds, Soft. absent: Tenderness - Extremities Exam Extremities exam: Positive for: normal inspection. Negative for: pedal edema, tenderness motor strength 5/5 bilaterally - Back Exam Back exam: tenderness (spinal tenderness T10 ) - Neurological Exam Neurological exam: Alert, Oriented x3 - Psychiatric Exam Psychiatric exam: Normal Affect, Normal Mood Discharge Plan - Discharge Medications Prescriptions: Aspirin [Aspirin Chewable] 81 mg PO DAILY 30 Days #30 chew Dorzolamide 2%/Timolol 0.5% [Cosopt 2%-0.5% Opht] 1 drop OU BID #1 bottle Famotidine [Pepcid] 1 tab PO DAILY #30 tab GlipiZIDE [Glucotrol] 5 mg PO DAILY #30 tab hydrALAZINE [Apresoline] 1 tab PO TID #90 tab Insulin Glargine, Recombina [Lantus] 10 unit SC BID #1 vial Isosorbide Dinitrate [Isordil] 30 mg PO BID #60 tab Metoprolol Succinate [Toprol XL] 50 mg PO DAILY 30 Days #30 tab NIFEdipine ER [Procardia XL] 90 mg PO DAILY #30 ter Rosuvastatin Calcium [Crestor] 10 mg PO HS #30 tab - Follow Up Plan Condition: STABLE Disposition: HOME/ ROUTINE Instructions: Type 2 Diabetes, High Blood Pressure in Adults, Aspirin, Dorzolamide and Timolol, Famotidine, Glipizide, Hydralazine, Isosorbide Dinitrate, Metoprolol, Nifedipine, Rosuvastatin, Insulin Glargine, Urinary Tract Infection in Women (DC), Back Pain (GEN) Additional Instructions: Patient is medically stable for discharge. Patient will be given scripts for the following medications which should be taken as instructed: 1. Hydralazine [Apresoline] 50mg, take three times a day at 8AM, 2PM and 8PM 2. Dorzolamide 2%/Timolol 0.5% [Cosopt], eyedrops, do 1 drop at 8AM and 8PM 3. Famotidine [Pepcid] 20mg, take once a day at 8AM with breakfast 4. Glipizide [Glucotrol] 5mg, take once a day at 8AM 5. Insulin Glargine [Lantus] 10u subcutaneous twice a day, at 8AM with breakfast and 8PM with dinner 6. Isosorbide Dinitrate [Isordil] 30mg take twice a day, at 8AM and 8PM 7. Metoprolol Succinate [Toprol XL] 50mg take once a day at 8PM 8. Nifedipine ER [Procardia XL] 90mg take once a day at 2PM 9. Rosuvastatin [Crestor] take once a day at 8pm with dinner Please STOP taking the following medications: 1. Meloxicam (this can cause stomach ulcers and make your kidneys fail) 2. Metoprolol Tartrate (this medication has been replaced with Metoprolol Succinate) If you have pain you can take over the counter Tylenol 500mg every 6 hours as needed for pain Home care services will get in touch with you within 48 hours to set-up home care. The company is called [employer]. If they do not contact you within 48 hours you may give them a call at [phone] to inquire further. And very importantly, to alleviate your back pain you need to get in touch with a pain management physician. Please get in touch with the following institution and ask them about pain relieving injections for your spinal stenosis: [facility] [address] [place] [address] Lastly, please follow-up with your PMD, Dr Lincoln in 1 week. If symptoms return please go to your nearest emergency department.
[2017-06-22 15:56] VITALS: BP 154/84; RESP 20; TEMP 97.9; O2SAT 96
== END 2017-06-22 16:17 | disposition home or self-care (01) | DRG 552 ==
LOC: C.ER 21:11 → C.5S 06-22 01:15
PROVIDERS: ADMIT Internal Medicine; ATTEND Internal Medicine
DX: M51.27 Other intervertebral disc displacement, lumbosacral region (principal); N39.0 Urinary tract infection, site not specified; E87.2 Acidosis; C67.9 Malignant neoplasm of bladder, unspecified; M47.9 Spondylosis, unspecified; E78.00 Pure hypercholesterolemia, unspecified; E11.9 Type 2 diabetes mellitus without complications; I10 Essential (primary) hypertension; H54.7 Unspecified visual loss; I25.10 Atherosclerotic heart disease of native coronary artery without angina pectoris; M25.78 Osteophyte, vertebrae; Z79.4 Long term (current) use of insulin; Z87.891 Personal history of nicotine dependence; Z95.0 Presence of cardiac pacemaker; Z95.5 Presence of coronary angioplasty implant and graft

== ENCOUNTER 2018-06-13 16:36 | Outpatient (CLI) | payer MEDICARE | END 2018-06-13 16:37 | disposition home or self-care (01) | LOC: C.MAMMO 16:36 | DX: Z12.31 Encounter for screening mammogram for malignant neoplasm of breast (principal) ==

== ENCOUNTER 2018-06-13 17:30 | Outpatient (CLI) | payer MEDICARE | END 2018-06-13 17:31 | disposition home or self-care (01) | LOC: C.LAB 17:30 | DX: E11.65 Type 2 diabetes mellitus with hyperglycemia (principal); E78.2 Mixed hyperlipidemia ==

== ENCOUNTER 2018-07-13 13:12 | Outpatient (CLI) | payer MEDICARE | END 2018-07-13 13:13 | disposition home or self-care (01) | LOC: C.USIC 13:12 ==